=== PATIENT | male | born 1960 | race Caucasian/White ===

== ENCOUNTER → 2017-02-04 | Outpatient (CLI) | payer BC ==
[~2017-02-04] MED LIST: LEVO50TA6 PO; MULT-506 PO; NAPR1TAB9 PO; OLME40TA30 PO
--- NOTE | 2017-02-04 09:01 | DIAGNOSTIC IMAGING REPORT ---
ABDOMINAL ULTRASOUND, RIGHT UPPER QUADRANT HISTORY: Elevated liver function tests. COMPARISON: None. FINDINGS: This exam is significantly compromised by suboptimal penetration. There is possible fatty infiltration of the liver. No hepatic lesions are identified although sensitivity is significantly diminished on this exam. There is no biliary ductal dilatation. No gallstones are identified. No gallbladder wall thickening is present. Pancreatic body is normal. Head and tail are obscured. IMPRESSION: 1. Exam significantly compromised by suboptimal penetration. 2. No gallstones or biliary ductal dilatation identified. 3. Possible fatty infiltration of the liver. Electronically signed by: Matthew Concepcion M.D. 02/04/2017 9:00 AM Dictated Date/Time: 02/04/2017 8:59 AM
== END | disposition home or self-care (01) ==
LOC: C.ULTR 08:24
PROVIDERS: ATTEND Internal Medicine
DX: R79.89 Other specified abnormal findings of blood chemistry (principal)